=== PATIENT | female | born 1975 | race Two or more races ===

== ENCOUNTER 2023-11-01 08:22 | Emergency (ER) | payer OTHER ==
[~2023-11-01] VITALS: Ht 172.7 cm; Wt 91.8 kg
[2023-11-01] MEDS ORDERED: cloNIDine HCL 0.1 MG TAB PO ONE (08:45)
[2023-11-01 10:11] VITALS: BP 185/125; PULSE 106; RESP 20; TEMP 97.1; O2SAT 100
[2023-11-01] MEDS ORDERED: METHOCARBAMOL 500 MG TAB PO ONE (10:45)
[2023-11-01] MEDS ORDERED: DexAMETHasone SOD PHOS 10MG/1ML VIAL INJ IM ONE (10:45)
[2023-11-01] MEDS ORDERED: KETOROLAC TROMETH 30 MG/ML 1ML VIAL IM ONE (10:45)
[2023-11-01] MEDS ORDERED: METH-1181 PO (11:30)
[2023-11-01] MEDS ORDERED: PRED20TA2 PO (11:30)
[2023-11-01] MEDS ORDERED: NABU-72 PO (11:30)
== END 2023-11-01 11:38 | disposition home or self-care (01) ==
LOC: ER 08:22
DX: M54.2 Cervicalgia (principal); M25.78 Osteophyte, vertebrae; M48.02 Spinal stenosis, cervical region; I10 Essential (primary) hypertension; Z79.899 Other long term (current) drug therapy; Z88.8 Allergy status to other drugs, medicaments and biological substances
CPT/HCPCS: 72125; 96372; 99285; J1100; J1885

== ENCOUNTER 2024-06-26 12:03 | Emergency (ER) | payer OTHER ==
[~2024-06-26] VITALS: Ht 172.7 cm; Wt 91.5 kg
[~2024-06-26 12:03] MED LIST: METH-1181 PO; NABU-72 PO; PRED20TA2 PO
[2024-06-26 12:43] LABS: Basophils # (auto) 0.1 10 ^3/uL (0-0.2); Eosinophils # (auto) 0.1 10 ^3/uL (0-0.8); Hematocrit 32.5 % (36.0-46.0); Monocytes # (auto) 0.5 10 ^3/uL (0-1.3); White Blood Cell 5.2 10^3/uL (4.4-10.8)
[2024-06-26 12:46] LABS: Basophils % (auto) 1.6 % (0.0-2.0); Eosinophils % (auto) 1.3 % (0.0-7.0); Hemoglobin 10.5 g/dL (12.2-16.2); Lymphocytes % (auto) 19.9 % (10.0-50.0); Mean Corpuscular Hemoglobin 21.9 pg (28.0-32.0); Mean Corpuscular Hgb Conc. 32.3 g/dL (32.0-36.0); Neutrophils # (auto) 3.5 10 ^3/uL (1.6-8.6); Neutrophils % (auto) 67.2 % (37.0-80.0); Nucleated Red Blood Cells % 0.2 %; Platelet Count (auto) 275 10^3/uL (140-450); Red Blood Cells 4.77 10^6/uL (4.0-5.20); Red Cell Distribution Width 17.4 % (11.8-14.3)
[2024-06-26 12:49] LABS: Alanine Aminotransferase 18 U/L (7-40); Albumin 4.6 g/dL (3.2-4.8); Alkaline Phosphatase 56 U/L (46-116); Anion Gap 6 (5-15); Aspartate Aminotransferase 11 U/L (13-40); BUN/Creatinine Ratio 16.2 (10.0-20.0); Blood Urea Nitrogen 16 mg/dL (9-23); Calcium 9.7 mg/dL (8.7-10.4); Carbon Dioxide 23 mmol/L (20-30); Chloride 108 mmol/L (98-107); Glucose 94 mg/dL (74-106); Potassium 4.1 mmol/L (3.5-5.1); Sodium 137 mmol/L (136-145)
[2024-06-26 12:50] LABS: Bilirubin, Total 0.5 mg/dL (0.2-1.0); Total Protein 7.5 g/dL (5.7-8.2)
[2024-06-26] MEDS: cloNIDine HCL 0.1 MG TAB PO ONE (13:51)
[2024-06-26] MEDS: IOHEXOL 350 MG/ML 100ML IJ ONE (17:11)
[2024-06-26] MEDS: ONDANSETRON HCL 4 MG/2 ML VIAL IV ONE (18:43)
[2024-06-26 18:45] VITALS: BP 162/86; PULSE 53; RESP 17; TEMP 98.1; O2SAT 100
[2024-06-26] MEDS: MORPHINE SULFATE 4 MG/ML SYR/VIAL IV ONE (18:45)
== END 2024-06-26 19:18 | disposition home or self-care (01) ==
LOC: ER 12:03
DX: R07.89 Other chest pain (principal); I10 Essential (primary) hypertension; E11.9 Type 2 diabetes mellitus without complications; Z98.890 Other specified postprocedural states; Z79.899 Other long term (current) drug therapy; Z88.8 Allergy status to other drugs, medicaments and biological substances
CPT/HCPCS: 36415; 71045; 71275; 80053; 83735; 83880; 84484; 85025; 85379; 93005; 96374; 96375; 99285; J2270; J2405; Q9967